=== PATIENT | female | born 1980 | race Caucasian/White ===

== ENCOUNTER 2016-10-28 11:49 | Emergency (ER) | payer OTHER | END 2016-10-28 12:28 | disposition home or self-care (01) | LOC: ER 11:49 | DX: R21 Rash and other nonspecific skin eruption (principal); F17.210 Nicotine dependence, cigarettes, uncomplicated; Z88.1 Allergy status to other antibiotic agents | CPT/HCPCS: 96372; 99282-25 ==

== ENCOUNTER 2016-11-01 12:26 | Emergency (ER) | payer OTHER | END 2016-11-01 15:02 | disposition home or self-care (01) | LOC: ER 12:26 | DX: M54.10 Radiculopathy, site unspecified (principal); M79.601 Pain in right arm; Z98.51 Tubal ligation status; Z88.1 Allergy status to other antibiotic agents | CPT/HCPCS: 72040; 99283-25 ==